=== PATIENT | female | born 2005 | race Caucasian/White ===

== ENCOUNTER 2025-03-11 11:19 | Inpatient (IN) | payer MEDICAID, OTHER ==
[2025-03-11] MEDS ORDERED: LORazepam 1 MG TAB PO PRN ×2 (14:20)
[2025-03-11] MEDS ORDERED: MAG HYDROX/AL HYDROX/SIMETH 355 ML BOTTLE PO PRN (14:20)
[2025-03-11] MEDS ORDERED: ACETAMINOPHEN TAB 325 MG TAB PO PRN (14:20)
[2025-03-11] MEDS ORDERED: HALOPERIDOL LACTATE 5 MG/ML 1 ML VIAL IM PRN (14:20)
[2025-03-11] MEDS ORDERED: IBUPROFEN 600 MG TAB PO PRN (14:20)
[2025-03-11] MEDS: NICOTINE 21MG/24HR PATCH TRANSDERM SCH (23:49)
[2025-03-12] MEDS: lamoTRIgine 25 MG TAB PO SCH ×2 (08:57→20:54)
[2025-03-12 10:30] LABS: Cholesterol 137.00 mg/dL (0.00-200.00); HDL Cholesterol 47.30 mg/dL (40.00-60.00); LDL Cholesterol,Calculated 67.1 mg/dL (0.0-131.0); Triglycerides 113.00 mg/dL (0.00-149.00); VLDL Calculation 22.60 mg/dL (5.00-40.00)
--- NOTE | 2025-03-12 13:31 | P.HP ---
Psychiatric H&P - . H&P Date: 03/12/25 History & Physical: Allergies Allergy/AdvReac Type Severity Reaction Status Date / Time No Known Allergies Allergy Verified 03/11/25 14:19 Vital Signs Temp 98.3 F 03/12/25 09:18 Pulse 108 H 03/12/25 09:18 Resp 16 03/12/25 09:18 BP 118/72 03/12/25 09:18 Pulse Ox 98 03/12/25 09:18 FiO2 Intake & Output 03/11/25 03/12/25 03/12/25 18:59 06:59 18:59 Weight 69 kg 68.901 kg Laboratory Last Values Estimated Ave Glu mg/dL 82 mg/dL 03/12/25 07:07 Hemoglobin A1c 4.5 % (<=6.0) 03/12/25 07:07 Triglycerides 113.00 mg/dL (0.00-149.00) 03/12/25 07:07 Cholesterol 137.00 mg/dL (0.00-200.00) 03/12/25 07:07 LDL Cholesterol, Calc 67.1 mg/dL (0.0-131.0) 03/12/25 07:07 VLDL Cholesterol, Calc 22.60 mg/dL (5.00-40.00) 03/12/25 07:07 HDL Cholesterol 47.30 mg/dL (40.00-60.00) 03/12/25 07:07 Cholesterol/HDL Ratio 2.90 Ratio 03/12/25 07:07 TSH 1.240 mIU/L (0.465-4.680) 03/12/25 07:07 03/12/25 13:24 IDENTIFYING DATA: Patient is a 19-year-old female, she is currently single she lives with her mother and house, she has no kids she works setting up stages at concert venues HPI: Patient presented to the hospital yesterday as a transfer from [facility]. As per transfer noted by EPS nurse "Pt is a transfer from [facility]. Pt petitioned for drinking etoh and suicide attempt of drowning self in bathtub. Previous attempt of the same method. Pt states this time was not an attempt. Pt states she was drinking alcohol and was taking a bath while listening to music and her mom called the police." Patient was seen today for psychiatric evaluation. She claims that he has been having a difficult past few months. Claims that about 3 months ago she attempted suicide by overdosing and drinking alcohol. Claims that she went to an outside psychiatric hospital in [place]. States that she was not really focused on her recovery at that time and states that she was only trying to get out of the hospital. Claims that she has been doing worse since then spoke about her relationship breaking off in the past week and a half. Claims that her car has also been impounded due to her drinking and driving. Claims that she does have a history of BPD. Also has a history of depression and anxiety. States that she started drinking recently, was in her bath at home, claims that she was drunk and could not hear her mother. States that when her mother open the door she believes that she was attempting to drown herself however patient states that she was not. She is claiming to have depression and anxiety, endorsing fair sleep and appetite at this time. She was interested in having her medications adjusted and being in the hospital. Patient denies any suicidal or homicidal ideations intent or plan. At this time patient denies any auditory or visual hallucinations. Patient denies any flight of ideas racing thoughts and increased in goal directed behavior. Patient admits to using alcohol occasionally, denies any withdrawal symptoms. Also claims that she is vapes nicotine products. PAST PSYCHIATRIC HISTORY: Patient has a history of borderline personality disorder, depression and anxiety. Claims that she has been on several different antidepressants in the past currently on Paxil and Lamictal. Claims that she was last psychiatrically hospitalized in [place] 3 months ago. Claims that she does have a outpatient [facility] psychiatrist that she sees regularly. Claims that she did have 1 suicide attempt 3 months ago when she attempted to overdose on her medications and hearing alcohol. PMH: as per ER note ALLERGIES: as per EMR CHEMICAL DEPENDENCY HISTORY: as per HPI FAMILY PSYCHIATRIC/SUBSTANCE USE HISTORY: Claims that her grandmother has schizophrenia and likely her aunt does as well. Claims that her father has bipolar disorder SOCIAL HISTORY: Patient was born and raised in [place]. Claims that she completed high school did some college. Denies any legal history. She is currently single she has no kids she lives in a house with her mother. She works at a [employer] venues. MENTAL STATUS EXAM: General Appearance: Patient appears to be thin, several tattoos, wearing glasses, stated age is alert, directable, and attempts to cooperate. Patient appears to have fair hygiene and grooming. Behavior: Patient is seated without any agitated behavior. Attempts to cooperate Speech: Patient's speech is fluent and nonpressured. Soft tone Mood/Affect: Patient reports their mood is depressed and anxious, affect is congruent and constricted. Suicidality/Homicidality: Patient denies having any homicidal ideation intent or plan. Denies any suicidal ideations intent or plan Perceptions: Patient denies any visual hallucinations and denies any auditory hallucinations Though content/process: There is no evidence of any delusional thought content and thought process is linear and goal-directed. Fairly concrete, somewhat guarded Memory and concentration: AOX3, grossly intact for the purposes of this session. Can spell "WORLD" backwards Judgment and insight: Poor STRENGTHS/WEAKNESSES: strength is that patient is resilient. Weakness is that patient has poor judgment and is impulsive INTELLECT: Average IMPRESSIONS: Depressive disorder unspecified Anxiety disorder unspecified Borderline personality disorder Alcohol abuse Nicotine dependence PLAN: -Patient is admitted under voluntary status to MHU for stabilization of psychiatric symptoms and safety. Patient has signed adult voluntary form and has signed medication consent and is placed in patient's chart. -Medications : Cymbalta 30 mg daily for mood/anxiety, increase Lamictal to 25 mg twice daily for mood stabilization/depression. We spoke about the side effect of a potential rash, she denies having 1 at this time and will continue to monitor -Ativan and Haldol PRN for agitation/aggression -Patient was counselled on substance abuse and desired to cut back on use. Will offer patient subtance use rehab -Patient was informed of the risks, benefits and side effects of the medications and patient verbally consented to taking the medications. Patient signed med consent form and was placed in chart. Patient was offered medication information and accepted it -Internal Medicine consult to perform medical evaluation and physical. -NRT -nicotine patch -SW on board for discharge planning. Encourage patient to participate in groups to work on coping skills.
[2025-03-12 17:19] LABS: Bacteria,Urine Occasional /hpf; Bilirubin,Urine Negative (Negative); Blood,Urine Negative (Negative); Color,Urine Colorless; Glucose,Urine (UA) Negative (Negative); Ketones,Urine Negative (Negative); Leukocyte Esterase,Urine Large (Negative); Mucus,Urine Rare /hpf; Nitrite,Urine Negative (Negative); PH, Urine 7.0 (5.0-8.0); Protein,Urine Negative (Negative); RBC,Urine 10 /hpf (0-5); Specific Gravity,Urine 1.012 (1.001-1.035); Squamous Epithelial Cell,Urine 25 /hpf (0-4); Urobilinogen,Urine <2.0 mg/dL (<2.0); WBC,Urine 45 /hpf (0-5)
[2025-03-12] MEDS: MAGNESIUM HYDROXIDE 2,400 MG/30 ML CUP PO PRN (20:55)
[2025-03-12 22:15] LABS: Barbiturate Screen,Urine Not Detected (NotDetected); Benzodiazepines Screen,Urine Not Detected (NotDetected); Opiate Screen,Urine Not Detected (NotDetected); Oxycodone Screen, Urine Not Detected (NotDetected); Phencyclidine Screen,Urine Not Detected (NotDetected); Tricyclic Antidepressant,Urine Not Detected (NotDetected); Urn Cannabinoid Scrn Not Detected (NotDetected)
[2025-03-13] MEDS ORDERED: hydrOXYzine HCL 25 MG TAB PO PRN (11:53)
--- NOTE | 2025-03-13 12:08 | P.PN ---
Progress Note - Text Progress Note Date: 03/13/25 Interval History: Patient was seen today for psychiatric follow up. Patient was seen in [facility] today. She appears to have improving hygiene and grooming today was more social today with travel writer asked more about medication options. She claims that she did have a good experience with hydroxyzine in the past for anxiety as a as needed To try that again. She has been monitoring her skin no rashes at this time. Claims that she is having some anxiety in the morning early, we spoke about increasing the dose of Cymbalta which she is okay with. Claims that she has been going to groups eating well. He was asking about potential discharge Sunday if she is doing better. Denies any suicidal or homicidal ideations and her plan is any auditory or visual stations. Not reporting any side effects at this time. MENTAL STATUS EXAM: General Appearance: Patient appears to be thin, several tattoos, wearing glasses, stated age is alert, directable, and attempts to cooperate. Patient appears to have fair hygiene and grooming. Behavior: Patient is seated without any agitated behavior. Attempts to cooperate Speech: Patient's speech is fluent and nonpressured. Soft tone, improving mildly Mood/Affect: Patient reports their mood is mainly anxious, affect is congruent and improving mildly Suicidality/Homicidality: Patient denies having any homicidal ideation intent or plan. Denies any suicidal ideations intent or plan Perceptions: Patient denies any visual hallucinations and denies any auditory hallucinations Though content/process: There is no evidence of any delusional thought content and thought process is linear and goal-directed. Memory and concentration: AOX3, grossly intact for the purposes of this session Judgment and insight: improving mildly IMPRESSIONS: Depressive disorder unspecified Anxiety disorder unspecified Borderline personality disorder Alcohol abuse Nicotine dependence PLAN: -Patient is admitted under voluntary status to MHU for stabilization of psychiatric symptoms and safety. Patient has signed adult voluntary form and has signed medication consent and is placed in patient's chart. -Medications : increase Cymbalta 20 mg daily for mood/anxiety, can consider increasing more over the weekend if needed, Lamictal 25 mg twice daily for mood stabilization/depression. We spoke about the side effect of a potential rash, she denies having 1 at this time and will continue to monitor -vistaril and Haldol PRN for agitation/aggression and anxiety -NRT -nicotine patch -SW on board for discharge planning. Encourage patient to participate in groups to work on coping skills. Likely discharge Sunday if patient is improving.
--- NOTE | 2025-03-15 18:12 | P.MDCNMH ---
History of Present Illness H&P Date: 03/15/25 Chief Complaint: Medical management 19-year-old woman with no significant medical history presented for mental health evaluation. Medicine was consulted for medical management. Patient has no active medical issues at this time. She has no complaints at this time. She is hemodynamically stable. A1c is 4.5, lipid panel is unremarkable. TSH is 1.24. Urinalysis was contaminated. Urine tox urine is negative. Urine hCG is negative. No images to review. Gen: In NAD, non-toxic HEENT: normocephalic, atraumatic, hearing acuity is intant, mucous membranes moist CVS: perfusing all extremities well, no pitting edema, Respiratory: symmetric chest expansion, no accessory muscle use, GI: soft, NTTP, ND, : no suprapubic tenderness, no CVA tenderness MSK/Derm: no rashes, cyanosis Neuro: CN II-XII intact, no motor weakness, Psych: cooperative, euthymic mood, judgment and insight is intact Labs and imaging as above Assessment/plan: Mildly overweight - Outpatient weight loss referral - PCP referral upon discharge - Diet and exercise counseling Remainder of care per primary team. Thank you for this consult, please reach out with any further questions or concerns. Past Medical History Past Medical History: No Reported History History of Any Multi-Drug Resistant Organisms: None Reported Past Surgical History: No Surgical Hx Reported Past Anesthesia/Blood Transfusion Reactions: No Reported Reaction Past Psychological History: Anxiety, Depression Smoking Status: Vaper Past Alcohol Use History: None Reported Past Drug Use History: None Reported Medications and Allergies Allergies Allergy/AdvReac Type Severity Reaction Status Date / Time No Known Allergies Allergy Verified 03/11/25 14:19 Physical Exam Osteopathic Statement: *. No significant issues noted on an osteopathic structural exam other than those noted in the History and Physical/Consult. Vitals: Vital Signs Temp Pulse Resp BP Pulse Ox 03/15/25 12:58 98.2 F 98 16 118/69 98 03/14/25 21:00 98.7 F 85 16 100/66 98 Intake and Output 03/15/25 03/15/25 03/15/25 06:59 14:59 22:59 Other: Weight 71.7 kg Cranial Nerve Examination - Cranial Nerves Cranial Nerve II- Optic: Intact Cranial Nerve III- Oculomotor: Intact Cranial Nerve IV- Trochlear: Intact Cranial Nerve V- Trigeminal: Intact Cranial Nerve - Abducens: Intact Cranial Nerve VII- Facial: Intact Cranial Nerve VIII- Auditory: Intact Cranial Nerve IX- Glossopharyngeal: Intact Cranial Nerve X- Vagus: Intact Cranial Nerve XI- Accessory: Intact Cranial Nerve XII- Hypoglossal: Intact
--- NOTE | 2025-03-15 21:00 | P.PN ---
Progress Note - Text Progress Note Date: 03/14/25 Interval History: Patient was seen today in her room where she has been sleeping most of the day. She reports she feels tired and has been catching up on sleep. She claims her mood is ok and "pretty good", but objectively appears depressed with low energy. She rates her depression as 4/10 today. She denies any suicidal or homicidal ideations. She denies auditory or visual hallucinations. She is compliant with medications and denies side effects. She denies rash from Lamictal. She was encouraged to get out of bed and keep herself engaged in activities and treatment. MENTAL STATUS EXAM: General Appearance: Patient appears to be stated age, wearing glasses, has tattoos, fair hygiene and grooming. Behavior: Patient is laying in bed without any agitated behavior. Attempts to cooperate Speech: Patient's speech is fluent and non-pressured. Soft tone, improving mildly Mood/Affect: Patient reports their mood is mainly ok, affect is congruent and improving mildly Suicidality/Homicidality: Patient denies having any homicidal ideation intent or plan. Denies any suicidal ideation intent or plan Perceptions: Patient denies any visual hallucinations and denies any auditory hallucinations Though content/process: There is no evidence of any delusional thought content and thought process is linear and goal-directed. Memory and concentration: AOX3, grossly intact for the purposes of this session Judgment and insight: improving mildly Assessment/Plan: -Patient is admitted under voluntary status to MHU for stabilization of psychiatric symptoms and safety. Patient has signed adult voluntary form and has signed medication consent and is placed in patient's chart. -Medications: Continue Cymbalta 20 mg BID for mood/anxiety, she declines increase to her antidepressant. Continue Lamictal 25 mg BID for mood stabilization/depression. She denies rash. -Vistaril and Haldol PRN for agitation/aggression and anxiety -Encourage patient to participate in groups to work on coping skills.
--- NOTE | 2025-03-15 21:05 | P.PN ---
Progress Note - Text Progress Note Date: 03/15/25 Interval history: Patient was seen today in her room where she has been sleeping most of the day again today. She reports the same as yesterday, that she feels tired and has been catching up on sleep. She claims her mood is ok but that she has been feeling drained from her recent 3-month relationship that ended about a week ago. She describes him as a narcissist and played mind games which makes her feel drained. She had difficulty sleeping last night likely because she had been in bed most of the day yesterday. She was encouraged to get out of bed today. She denies any suicidal or homicidal ideation. She denies auditory or visual hallucinations. She is compliant with medications and denies side effects. She denies rash from Lamictal. She was encouraged to get out of bed and keep herself engaged in activities and treatment. MENTAL STATUS EXAM: General Appearance: Patient appears to be stated age, wearing glasses, has tattoos, fair hygiene and grooming. Behavior: Patient is laying in bed without any agitated behavior. Attempts to cooperate Speech: Patient's speech is fluent and non-pressured. Soft tone, improving mildly Mood/Affect: Patient reports their mood is ok but tired, affect is congruent and improving mildly Suicidality/Homicidality: Patient denies having any homicidal ideation intent or plan. Denies any suicidal ideation intent or plan Perceptions: Patient denies any visual hallucinations and denies any auditory hallucinations Though content/process: There is no evidence of any delusional thought content and thought process is linear and goal-directed. Memory and concentration: AOX3, grossly intact for the purposes of this session Judgment and insight: improving mildly Assessment/Plan: -Patient is admitted under voluntary status to MHU for stabilization of psychiatric symptoms and safety. Patient has signed adult voluntary form and has signed medication consent and is placed in patient's chart. -Medications: Continue Cymbalta 20 mg BID for mood/anxiety, she declines increase to her antidepressant. Continue Lamictal 25 mg BID for mood stabilization/depression. She denies rash. -Vistaril and Haldol PRN for agitation/aggression and anxiety -Encourage patient to participate in groups to work on coping skills. Monitor for medication compliance and for any psychotropic medication side effects. Will continue to monitor ongoing response to treatment. Encouraged participation in milieu.
[2025-03-16] MEDS: KETOTIFEN 0.025% OPHTH DROPS 5 ML BTL BOTH EYES SCH (10:04)
--- NOTE | 2025-03-16 10:55 | P.DS ---
Providers Date of admission: 03/11/25 22:37 Expected date of discharge: 03/16/25 Attending physician: Cyril Krishnamurthy MD Consults: 03/11/25 14:20 Consult Physician Routine Consulting Provider: Racheal Mai Consult Reason/Comments: H and P Do you want consulting provider notified?: Yes Primary care physician: Stated None - Discharge Diagnosis(es) (1) Depressive disorder Current Visit: Yes Status: Acute Priority: High (2) Anxiety disorder Current Visit: Yes Status: Acute Priority: Medium (3) Borderline personality disorder Current Visit: Yes Status: Acute Priority: Medium (4) Alcohol abuse Current Visit: Yes Status: Acute Priority: Medium (5) Nicotine dependence Current Visit: Yes Status: Acute Priority: Low Hospital Course: Admission HPI: Admission note was completed by filing writer "Patient is a 19-year-old female, she is currently single she lives with her mother and house, she has no kids 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 Patient presented to the hospital yesterday as a transfer from [facility]. As per transfer noted by EPS nurse "Pt is a transfer from [facility]. Pt petitioned for drinking etoh and suicide attempt of drowning self in bathtub. Previous attempt of the same method. Pt states this time was not an attempt. Pt states she was drinking alcohol and was taking a bath while listening to music and her mom called the police." Patient was seen today for psychiatric evaluation. She claims that he has been having a difficult past few months. Claims that about 3 months ago she attempted suicide by overdosing and drinking alcohol. Claims that she went to an outside psychiatric hospital in [place]. States that she was not really focused on her recovery at that time and states that she was only trying to get out of the hospital. Claims that she has been doing worse since then spoke about her relationship breaking off in the past week and a half. Claims that her car has also been impounded due to her drinking and driving. Claims that she does have a history of BPD. Also has a history of depression and anxiety. States that she started drinking recently, was in her bath at home, claims that she was drunk and could not hear her mother. States that when her mother open the door she believes that she was attempting to drown herself however patient states that she was not. She is claiming to have depression and anxiety, endorsing fair sleep and appetite at this time. She was interested in having her medications adjusted and being in the hospital. Patient denies any suicidal or homicidal ideations intent or plan. At this time patient denies any auditory or visual hallucinations. Patient denies any flight of ideas racing thoughts and increased in goal directed behavior. Patient admits to using alcohol occasionally, denies any withdrawal symptoms. Also claims that she is vapes nicotine products." Hospital course: Upon admission to the unit patient was directable and agreeable to commence treatment and signed adult voluntary form. Patient was initially calm and cooperative however with time and treatment patient got along well with other patients on the unit and followed unit protocol. Patient was compliant with the medications and denied any side effects throughout hospital course. Patient was started on Cymbalta increased to a dose of 20 mg twice daily for mood/anxiety, Lamictal 25 mg twice daily for mood stabilization/depression. Lead Radiation Therapist spoke with patient several times about the side effect of a potential rash with Lamictal and the monitor skin and seek urgent medical attention was assessed occur, she did not report any rash during the hospital station. Patient spoke of her stressors and engaged in therapy both group/activity therapy. Patient was also seen by medical team for history and physical exam. Throughout the course of the hospitalization patient gradually improved with regards to mood, anxiety, sleep and returned back to their baseline level of functioning. On the day of discharge patient denied any suicidal or homicidal ideations intent or plan denied any auditory or visual hallucinations. Patient endorsed wanting to live for their health and family. The patient denied any access to guns or weapons. Patient denied any paranoia and did not endorse any delusions. Patient does have a significant history of substance abuse and was counseled on abstaining from all substances including alcohol and marijuana. Patient was offered however declined inpatient substance-abuse rehab. Patient elected to do outpatient substance use treatment program through their outpatient provider. Patient was also counseled on the medications and need for regular compliance and was encouraged to follow-up with their outpatient appointment for mental health and also for primary care. Prior to discharge a family meeting will be arranged by social economist to answer any questions and ensure safety upon discharge incuding making sure that guns/weapons are either removed from the home or locked away. Mental status exam: General Appearance: Patient appears to be has tattoos on her arms, wearing glasses, stated age is alert, pleasant, and cooperative. Patient is in no acute distress and has improved hygiene and grooming Behavior: Patient is calmly seated without any agitated behavior. Speech: Patient's speech is fluent and nonpressured. Mood/Affect: Patient reports their mood is "good", affect is congruent and euthymic. Suicidality/Homicidality: Patient denies having any suicidal or homicidal ideation intent or plan. Perceptions: Patient denies any auditory or visual hallucinations. Though content/process: There is no evidence of any delusional thought content and thought process is linear and goal-directed. More future oriented Memory and concentration: AOX3, grossly intact for the purposes of this session. Can spell "WORLD" backwards correctly. Judgment and insight: Chronically poor, however has improved with guarded prognosis Impression: Depressive disorder unspecified Anxiety disorder unspecified Borderline personality disorder Alcohol abuse Nicotine dependence Plan: -Continue with discharge today as patient has improved and stabilized psychiatrically and is not currently an imminent threat to themself and/or others. Patient will remain at chronically elevated risk for harm to self and/or others due to their impulsivity and substance abuse. -Continue medications: Cymbalta 20 mg twice daily for mood/anxiety, Lamictal 25 mg twice daily for mood stabilization/depression -Patient was counseled on the need for medication compliance and appropriate follow-up at mental health and also primary care for medical issues. Patient verbalized understanding and agreed. -Social work to help coordinate patients discharge today arrange for and conduct family meeting to ensure safety upon discharge and answer any questions/con cerns. also to ensure safe home environment that guns/weapons are either removed from the home or locked away. Social work also to arrange for patients follow up appointments with [facility] for psychiatric care along with follow up with primary care provider. -Patient counseled on abstaining from recreational drugs and marijuana and alcohol. Was informed/educated on the adverse effects on their physical and mental health. Patient verbally agreed and understood. Patient was offered substance abuse treatment however declined at this time. -Patient was instructed to return to the hospital or seek immediate medical care if their psychiatric or medical symptoms do worsen or reoccur. Allergies Allergy/AdvReac Type Severity Reaction Status Date / Time No Known Allergies Allergy Verified 03/11/25 14:[address] Glu mg/dL 82 mg/dL 03/12/25 07:07 Hemoglobin A1c 4.5 % (<=6.0) 03/12/25 07:07 Triglycerides 113.00 mg/dL (0.00-149.00) 03/12/25 07:07 Cholesterol 137.00 mg/dL (0.00-200.00) 03/12/25 07:07 LDL Cholesterol, Calc 67.1 mg/dL (0.0-131.0) 03/12/25 07:07 VLDL Cholesterol, Calc 22.60 mg/dL (5.00-40.00) 03/12/25 07:07 HDL Cholesterol 47.30 mg/dL (40.00-60.00) 03/12/25 07:07 Cholesterol/HDL Ratio 2.90 Ratio 03/12/25 07:07 TSH 1.240 mIU/L (0.465-4.680) 03/12/25 07:07 Urine Color Colorless 03/12/25 17:00 Urine Appearance Cloudy (Clear) H 03/12/25 17:00 Urine pH 7.0 (5.0-8.0) 03/12/25 17:00 Ur Specific [place] 1.012 (1.001-1.035) 03/12/25 17:00 Urine Protein Negative (Negative) 03/12/25 17:00 Urine Glucose (UA) Negative (Negative) 03/12/25 17:00 Urine Ketones Negative (Negative) 03/12/25 17:00 Urine Blood Negative (Negative) 03/12/25 17:00 Urine Nitrite Negative (Negative) 03/12/25 17:00 Urine Bilirubin Negative (Negative) 03/12/25 17:00 Urine Urobilinogen <2.0 mg/dL (<2.0) 03/12/25 17:00 Ur Leukocyte Esterase Large (Negative) H 03/12/25 17:00 Urine RBC 10 /hpf (0-5) H 03/12/25 17:00 Urine WBC 45 /hpf (0-5) H 03/12/25 17:00 Ur Squamous Epith Cells 25 /hpf (0-4) H 03/12/25 17:00 Urine Bacteria Occasional /hpf (None) H 03/12/25 17:00 Urine Mucus Rare /hpf (None) H 03/12/25 17:00 Urine HCG, Qual Not Detected (Not Detectd) 03/15/25 12:33 Urine Opiates Screen Not Detected (NotDetected) 03/12/25 17:00 Ur Oxycodone Screen Not Detected (NotDetected) 03/12/25 17:00 Urine Methadone Screen Not Detected (NotDetected) 03/12/25 17:00 Ur Barbiturates Screen Not Detected (NotDetected) 03/12/25 17:00 U Tricyclic Antidepress Not Detected (NotDetected) 03/12/25 17:00 Ur Phencyclidine Scrn Not Detected (NotDetected) 03/12/25 17:00 Ur Amphetamines Screen Not Detected (NotDetected) 03/12/25 17:00 U Methamphetamines Scrn Not Detected (NotDetected) 03/12/25 17:00 U Benzodiazepines Scrn Not Detected (NotDetected) 03/12/25 17:00 Urine Cocaine Screen Not Detected (NotDetected) 03/12/25 17:00 U Marijuana (THC) Screen Not Detected (NotDetected) 03/12/25 17:00 Vital Signs Temp 98.1 F 03/15/25 21:00 Pulse 77 03/15/25 21:00 Resp 18 03/15/25 21:00 BP 100/55 03/15/25 21:00 Pulse Ox 99 03/15/25 21:00 FiO2 Intake & Output 03/15/25 03/16/25 03/16/25 18:59 06:59 18:59 Weight 71.7 kg Patient Condition at Discharge: Stable Plan - Discharge Summary Discharge Rx Participant: Yes New Discharge Prescriptions: New lamoTRIgine [LaMICtal] 25 mg PO BID 30 Days #60 tab DULoxetine HCL [Cymbalta] 20 mg PO BID 30 Days #60 cap Nicotine 21Mg/24Hr Patch [Habitrol] 1 patch TRANSDERM DAILY 14 Days #14 patch Acetaminophen Tab [Tylenol] 650 mg PO Q4HR PRN tab PRN Reason: Mild Pain (Scale 1 To 3) Ketotifen 0.025% Ophth Soln [Zaditor] 1 drops BOTH EYES BID PRN 30 Days #1 ml PRN Reason: Eye Irritation Discharge Medication List Acetaminophen Tab [Tylenol] 650 mg PO Q4HR PRN tab 03/16/25 [Rx] DULoxetine HCL [Cymbalta] 20 mg PO BID 30 Days #60 cap 03/16/25 [Rx] Ketotifen 0.025% Ophth Soln [Zaditor] 1 drops BOTH EYES BID PRN 30 Days #1 ml 03/16/25 [Rx] Nicotine 21Mg/24Hr Patch [Habitrol] 1 patch TRANSDERM DAILY 14 Days #14 patch 03/16/25 [Rx] lamoTRIgine [LaMICtal] 25 mg PO BID 30 Days #60 tab 03/16/25 [Rx] Activity/Diet/Wound Care/Special Instructions: [facility] Discharge Info Avoid the use of street drugs and alcohol. Take all medications as prescribed. When you are in need of refills on your medications, please contact your outpatient medical provider and/or outpatient psychiatrist. Please go to your scheduled outpatient appointments for aftercare treatment. If symptoms return or become worse, call the crisis line at or and/or visit the nearest emergency room for assistance. [place] [facility] and Crisis Lifeline - call or text [phone]. Discharge Disposition: HOME SELF-CARE
[2025-03-16 11:17] VITALS: BP 101/61; PULSE 81; RESP 16; TEMP 98.3
== END 2025-03-16 14:03 | disposition home or self-care (01) | DRG 751 ==
LOC: 3MHU 22:37
PROVIDERS: ADMIT Psychiatry & Neurology Psychiatry; ATTEND Psychiatry & Neurology Psychiatry
DX: F32.A Depression, unspecified (principal); F41.9 Anxiety disorder, unspecified; F60.3 Borderline personality disorder; F10.10 Alcohol abuse, uncomplicated; F17.200 Nicotine dependence, unspecified, uncomplicated; E66.3 Overweight; R45.851 Suicidal ideations; Z79.899 Other long term (current) drug therapy; Z81.8 Family history of other mental and behavioral disorders
CPT/HCPCS: 80061; 80306; 81001; 81025; 83036; 84443